=== PATIENT | male | born 1980 | race Caucasian/White ===

== ENCOUNTER 2021-08-05 20:24 | Observation (INO) | payer MEDICAID, SELFPAY ==
[2021-08-05 20:24] VITALS: BP 152/117; PULSE 108; RESP 18; TEMP 36.6; O2SAT 99; BMI 24.4
[2021-08-05 20:55] VITALS: BP 152/117; PULSE 108; RESP 18; TEMP 36.6; O2SAT 99
--- NOTE | 2021-08-05 21:13 | ED.VIS.LOWEX ---
HPI History of Present Illness Chief Complaint: Laceration Informant: patient and spouse/S.O. Occured/Mechanism Mechanism/Context: Yes injury Onset/Context/Timing Onset: Days Context: Gradual Onset Timing: Continuous Current Severity: Mild Maximum Severity: Moderate Narrative Narrative: 40-year-old male no segment past medical or surgical history. States on August 02 he had a laceration of his left foot while walking in a [place] he cut it on glass. He does not believe there is any foreign body. He was seen and treated at [facility]. He was suture repaired. He states in the last day or so he is developed increasing swelling and pain in the left foot. Today was seen again at [facility] where they put him on oral antibiotics. And he states the swelling is getting worse. He denies any fever or chills. He is not diabetic. Prior similar symptoms: No Recent Illness/Hospitalization: No PFSH PFSH Medical History Benign prostatic disease Normal cystoscopy Home Medications sulfamethoxazole-trimethoprim [Bactrim DS] 1 tab PO BID 08/05/21 [History Last Taken Unknown] Allergy/AdvReac Type Severity Reaction Status Date / Time No Known Allergies Allergy Verified 08/05/21 20:54 Surgical History H/O vasectomy Social History Smoking Status: Current every day smoker tobacco type: cigarettes ROS ROS ED ROS Narrative Denies. Review of Systems ROS Unobtainable: Denies due to encephalopathy Constitutional Constitutional ED: Denies chills, fever(s) or subjective Eyes Eyes: Denies change in vision ENT ENT ED: Denies ear pain, rhinorrhea or sore throat Cardiovascular Cardiovascular: Denies chest pain Respiratory/Chest Respiratory/Chest: Denies cough or dyspnea Gastrointestinal Gastrointestinal: Denies abdominal pain or nausea Genitourinary Genitourinary ED: Denies dysuria Musculoskeletal Musculoskeletal: Denies myalgias Integumentary Denies rash Neurologic Neurologic: Denies headache(s) Psychiatric Psychiatric: Denies depression Endocrine Endocrinology: Denies polyuria Hematologic/Lymphatic Hematologic/Lymphatic: Denies easy bruising Allergic/Immunologic Allergic/Immunologic ED: Denies urticaria EXAM Physical Exam Narrative Exam Narrative: 32-year-old male no acute distress vital signs stable afebrile blood pressure elevated 132/117. HEENT exam unremarkable. Lungs are clear. Heart regular rhythm no murmur rate about 105. Abdomen soft nontender. Moving all 4 extremities. Neurovascularly intact. His right foot has a laceration repair sutures in place. However it swollen tender and cellulitic. Involves the foot and the very distal right lower leg above the ankle. There is no lymphangitic streaking. There is no inguinal lymphadenopathy. He is able to wiggle his toes. He has a palpable DP pulse. He has normal touch sensation. Const Vital Signs: 08/05/21 20:24 08/05/21 20:55 08/05/21 21:33 Temperature 98 F 98 F 98 F Temperature Source Temporal Temporal Temporal Pulse Rate 108 H 108 H 108 H Respiratory Rate 18 18 18 Blood Pressure 152/117 H 152/117 H 152/117 H Blood Pressure Mean 128 128 128 Pulse Ox 99 99 99 Oxygen Delivery Method Room Air Room Air Room Air Positive well nourished and well developed; Negative for obese, cachectic, contractures or unkempt General Appearance ED: well developed and NAD; Negative for unkempt, cachectic or contractures Nutritional Appearance: Negative for cachectic or obese HEENT Reports moist mucous membranes normocephalic and atraumatic Eyes PERRL Neck full ROM and supple Thyroid: Negative for tender Chest Wall inspection of chest normal and palpation of chest normal Resp normal respiratory effort, no retractions and clear to auscultation bilaterally Auscultation: Negative for rales, rhonchi or wheezes Cardio regular rate, regular rhythm, S1 normal heart sound, S2 normal heart sound and no murmurs GI non-tender, non-distended and no masses Auscultation: normoactive bowel sounds Palpation: soft; Negative for tender or guarding Back/Spine no CVA tenderness Extremity normal to inspection Extremity Narrative: Right foot red, swollen and tender with a suture close laceration in the midportion of his instep. Obviously infected. General Extremety ED: Yes edema; Negative for cyanosis General Extremity: edema; Negative for cyanosis Neuro oriented x3 and moves all extremities Sensorium / Orientation: alert, oriented to person, oriented to place and oriented to time; Negative for confused, lethargic or stuporous Psych mental status grossly normal Appearance: Negative for unkempt Skin Skin Narrative: Right foot laceration repair with cellulitis and swelling. Lesions: no lesions MDM MDM MDM Narrative Medical decision making narrative: Patient has a laceration of his right foot that is been repaired at another facility is obviously infected will need to be admitted for IV antibiotics. Reportedly had prior x-rays that were negative for foreign body. I will obtain another set of x-rays screening labs and will be started on IV Unasyn. His tetanus is up-to-date within the last 2 to 3 years. Lab Data Attestation: I reviewed the patient's lab results. Lab results narrative: CBC shows a white count of 15.4. Hemoglobin 15. Electrolytes normal gap of 6. Normal creatinine of 1. Glucose 82. Labs: Laboratory Results - last 24 hr 08/05/21 08/05/21 21:30 21:30 WBC 15.4 H RBC 4.96 Hgb 15.6 Hct 46.0 MCV 92.7 MCH 31.5 MCHC 33.9 RDW Std Deviation 44.8 H RDW Coeff of Sandrine 13.2 Plt Count 225 MPV 10.0 Immature Gran % (Auto) 0.400 Neut % (Auto) 75.8 H Lymph % (Auto) 12.2 L Mccone % (Auto) 9.9 Eos % (Auto) 1.1 Baso % (Auto) 0.6 Absolute Neuts (auto) 11.6 H Absolute Lymphs (auto) 1.88 Nucleated RBC % 0 Sodium 140 Potassium 3.8 Chloride 106 Carbon Dioxide 28.0 Anion Gap 6 BUN 11 Creatinine 1.02 Estim Creat Clear Calc 107.78 Est GFR (MDRD) Af Amer 105 Est GFR (MDRD) Non-Af 87 BUN/Creatinine Ratio 10.8 Glucose 82 Calcium 9.5 Radiography Diagnostic Testing: Right foot x-ray 3 views interpreted by myself. Showss soft tissue swelling but no foreign body seen. No fracture noted. No gas. Interpreted by myself. Discharge Plan Dx/Rx/DC Orders Clinical Impression: Infection of right foot Disposition Disposition: Acute Care Hospital [facility]
[2021-08-05 21:33] VITALS: BP 152/117; PULSE 108; RESP 18; TEMP 36.6; O2SAT 99
--- NOTE | 2021-08-05 21:33 | RAD_ITS ---
STUDY: X-RAY - LEFT FOOT CLINICAL: Male, 40 years old. infected ??FB TECHNIQUE: 3 view(s) of the foot. COMPARISON: None. FINDINGS: Normal talus, calcaneus, and tarsal bones. Normal visualized subtalar, talonavicular, calcaneocuboid, tarsal and tarsometatarsal articulations. Normal metatarsi. Normal metatarsophalangeal joint of the great toe. Normal tibial and fibular sesamoid bones. Normal interphalangeal joint of the great toe. Normal phalanges of the great toe. Normal second through fifth metatarsophalangeal joints. Normal interphalangeal joints and phalanges of the lesser toes. The soft tissue structures are unremarkable. There is no demonstrated fracture. No visualized radiopaque foreign body. RAD/Foot min 3 Views IMPRESSION: Normal x-ray examination of the foot. Electronically Signed: Brown Barrios MD at 22:17 EDT , Service support ,
[2021-08-05 21:44] LABS: Absolute Lymphocyte Count 1.88 X10^3/uL (0.83-4.51); Absolute Neutrophil Count 11.6 X10^3/uL (2.0-7.7); Basophil# 0.09 X10^3/uL; Basophil% 0.6 % (0-1); Eosinophil# 0.17 X10^3/uL; Eosinophils% 1.1 % (0-5); Hemoglobin 15.6 g/dL (13.0-16.5); Lymphocyte # 1.88 X10^3/ul (0.83-4.51); Lymphocyte % 12.2 % (19-41); Mean Corp Hgb Conc 33.9 g/dL (32-36); Mean Corpuscular Hgb 31.5 pg (27.0-32.0); Mean Corpuscular Volume 92.7 fL (80-94); Monocyte# 1.52 X10^3/uL; Monocyte% 9.9 % (0-10); NRBC Flagged by Analyzer 0 % (0-5); Neutrophil # 11.63 X10^3/uL (2.7-7.7); Neutrophil % 75.8 % (47-70); POSITIVE DIFFERENTIAL YES; Platelet Count 225 K/mm3 (150-450); RBC Distribution Width CV 13.2 % (11.6-14.6); RBC Distribution Width SD 44.8 fl (35.1-43.9); Red Blood Count 4.96 M/mm3 (4.6-6.2); White Blood Count 15.4 K/mm3 (4.4-11.0)
[2021-08-05 21:59] LABS: Anion Gap 6 (5-15); BUN 11 mg/dL (7-18); BUN/Creat Ratio 10.8 RATIO (10-20); Calcium,Total 9.5 mg/dL (8.5-10.1); Chloride 106 mmol/L (98-107); Creatinine, Serum 1.02 mg/dL (0.70-1.30); EST Glomerular Filtration Rate 87 mL/min (>60); Est Glom Filt Rate - Afr Amer 105 mL/min (>60); Estimated Creatinine Clearance 107.78 ml/min; Glucose 82 mg/dL (74-106); Potassium 3.8 mmol/L (3.5-5.1); Sodium Level 140 mmol/L (136-145)
[2021-08-05 22:05] LABS: Differential Indicated SCAN CRITERIA MET
[2021-08-05 22:19] VITALS: BP 145/95; PULSE 89; RESP 16; TEMP 36.4; O2SAT 99
[2021-08-05 22:30] VITALS: RESP 16
[2021-08-05 22:31] LABS: Differential Comment SCANNED
--- NOTE | 2021-08-05 22:31 | PCS.PANDOC ---
PANDEMIC DOCUMENTATION INITIATED: Date: 06/13/2021 Time: 190
--- NOTE | 2021-08-05 22:40 | CT_ITS ---
STUDY: CT RIGHT FOOT WITH CONTRAST REASON FOR EXAM: Male, 40 years old. Other, STEPPED ON GLASS SUNDAY,LACERATION WITH STITCHES RT MID MEDIAL FOOT,PAIN,REDNESS AND SWELLING RADIATION DOSAGE (If Supplied By Facility): CTDIvol = ( 15.35 ) mGy, DLP = ( 537.98 ) mGycm TECHNIQUE: Thin section transaxial imaging of the foot was obtained, with sagittal and coronal reconstructed images. Post contrast imaging was performed. Individualized dose optimization techniques were used for this CT. COMPARISON: Right foot x-ray dated August 05, 2021 FINDINGS: Mild to moderate subcutaneous edema is present around the ankle and throughout the foot. The muscles are normal. No visualized subcutaneous abscess subcutaneous gas. No radiopaque foreign body is seen. No demonstrated cortical erosion or bony destruction or periosteal reaction to suggest osteomyelitis. No focal or suspicious enhancement is present. Normal talus, calcaneus, and tarsal bones. Normal visualized tibiotalar, subtalar, talonavicular, calcaneocuboid, tarsal and tarsometatarsal articulations. Normal metatarsi. Normal metatarsophalangeal joint of the great toe. Normal tibial and fibular sesamoid bones. Normal interphalangeal joint of the great toe. Normal phalanges of the great toe. Normal second through fifth metatarsophalangeal joints. Normal interphalangeal joints and phalanges of the lesser toes. The Achilles tendon is intact. No occult fracture is present. IMPRESSION: Findings are consistent with cellulitis 1. Mild to moderate subcutaneous edema is present around the ankle and throughout the foot. The muscles are normal. 2. No visualized subcutaneous abscess subcutaneous gas. 3. No radiopaque foreign body is seen. 4. No demonstrated cortical erosion or bony destruction or periosteal reaction to suggest osteomyelitis. 5. No focal or suspicious enhancement is present. 6. No fracture is seen. Electronically Signed: Brown Barrios MD at 0:07 EDT , Service support , CT/Extremity Lower WITH Contrast
--- NOTE | 2021-08-05 22:41 | HP.PCM.HOS_ITS ---
HPI - General General Date of Admission: 08/05/21 HPI Narrative JAMMIE ALEMAN, is a 40 M who presented to [facility] on 08/05/2021 with a chief complaint of right foot infection. On Sunday of this week the patient was waiting in a [place] and stepped on a piece of wood that had glass embedded in it. At that time he went to [facility] where he states the wound was aggressively irrigated and then sutured but he was not placed on antibiotics at that time. He states since that time he has had progressive worsening of swelling and erythema that developed within the last 24 to 36 hours. He states that it significantly got worse today and he went to the emergency department back at [facility] today and was started on oral Bactrim. He had 1 dose in the emergency department there prior to discharge. He then came to the emergency department here as his pain got worse and the erythema spread significantly. He reports that he had some low-grade temperatures that were slightly below 101 yesterday but none today. His only other complaints are significant right lower extremity pain and erythema. He has no tingling and numbness in the toes and states otherwise he is feeling well. On exam the foot is very tender with worsening erythema. There is no drainage from the laceration that is currently sutured shut. There is increased tissue temperature and mild streaking up the medial aspect of his right calf. I outlined the erythematous area. His vital signs were overall stable. He had some mild tachycardia on presentation that has since resolved. He is afebrile and his vital signs are otherwise stable. His CBC shows a leukocytosis with a white count of 15.4 and a left shift but is otherwise unremarkable. His BMP is all within normal limits. A foot x-ray was obtained that shows no abnormalities. I have requested a foot CT that is currently pending. He has no chronic medical conditions. He does smoke cigarettes of approximately 1 pack every 3 days. He was treated with IV Unasyn in the emergency department and we were requested to evaluate for admission. [facility] Medical History Benign prostatic disease Normal cystoscopy Home Medications sulfamethoxazole-trimethoprim [Bactrim DS] 1 tab PO BID 08/05/21 [History Last Taken Unknown] Allergy/AdvReac Type Severity Reaction Status Date / Time No Known Allergies Allergy Verified 08/05/21 20:54 Family History (Updated 08/05/21 @ 22:[address] Annamaria Thompson DO) Other COPD (chronic obstructive pulmonary disease) Surgical History H/O vasectomy Social History (Updated 08/05/21 @ 23:[address] Annamaria Thompson DO) Smoking Status: Current every day smoker tobacco type: cigarettes alcohol intake: current alcohol intake frequency: a few times a week substance use type: does not use ROS Constitutional Constitutional: Reports chills and fever(s); Denies anorexia, change in weight, fatigue, malaise, night sweats, weakness or other Eyes Eyes: Denies blurry vision, change in eye color, change in vision, discharge from eye(s), double vision, erythema, eye pain, loss of vision or other ENT HEENT: Denies abnormal hearing, dysphagia, ear pain, epistaxis, headache(s), hearing loss, nasal congestion, nasal discharge, post nasal drip, sinus pressure, sore throat or other Cardiovascular Cardiovascular: Denies chest pain, claudication, dyspnea on exertion, edema, lightheadedness, orthopnea, palpitations, paroxysmal nocturnal dyspnea, rapid heart rate, syncope or other Respiratory/Chest Respiratory/Chest: Denies cough, dyspnea, excessive phlegm production, hemoptysis, productive cough, shortness of breath at rest, shortness of breath with exertion, wheezing or other Gastrointestinal Gastrointestinal: Denies abdominal pain, coffee ground emesis, constipation, diarrhea, dyspepsia, hematemesis, hematochezia, loose stools, melena, nausea, vomiting or other Genitourinary Genitourinary: Denies burning urination, difficulty urinating, dysuria, hematuria, nocturia, urinary frequency, urinary hesitancy, urinary incontinence, urinary urgency or other Musculoskeletal Musculoskeletal: Reports other Details: Foot pain, swelling, erythema Neurologic Neurologic: Reports abnormal gait; Denies abnormal speech, confusion, disequilibrium, dizziness, focal weakness, headache(s), numbness, paresthesias, seizure-like activity, seizures, syncope, tingling, tremor(s) or other Psychiatric Psychiatric: Denies anxiety, depression, homicidal ideation, suicidal ideation or other Endocrine Endocrinology: Denies change in body appearance, cold intolerance, excessive swe ating, heat intolerance, polydipsia, polyuria or other Hematologic/Lymphatic Hematologic/Lymphatic: Denies anemia, easy bleeding, easy bruising, lymphadenopathy or other Allergic/Immunologic Allergic/Immunologic: Denies rhinitis, hives, eczemia, asthma or other Vital Signs Vital Signs Vital Signs: 08/05/21 20:24 08/05/21 20:55 08/05/21 21:33 Temperature 98 F 98 F 98 F Temperature Source Temporal Temporal Temporal Pulse Rate 108 H 108 H 108 H Respiratory Rate 18 18 18 Blood Pressure 152/117 H 152/117 H 152/117 H Blood Pressure Mean 128 128 128 Pulse Ox 99 99 99 Oxygen Delivery Method Room Air Room Air Room Air 08/05/21 22:19 08/05/21 22:30 Temperature 97.5 F L Temperature Source Temporal Pulse Rate 89 Respiratory Rate 16 16 Blood Pressure 145/95 H Blood Pressure Mean 111 Pulse Ox 99 Oxygen Delivery Method Weight Weight: 81.647 kg Body Mass Index (BMI) 24.4 Physical Exam Const alert, oriented x3, no apparent distress and average body habitus Constitutional Narrative: Middle-aged white male lying in bed, appears comfortable, nontoxic, very pleasant General Appearance: cooperative HEENT normocephalic, head/scalp atraumatic, hearing grossly normal bilaterally and moist oral mucous membranes HEENT Narrative: Mallampati 2, no thrush, few teeth missing with fair dentition Eyes PERRL, EOMs intact bilaterally and conjunctivae normal Eyes Narrative: No scleral icterus Neck no lymphadenopathy, supple and no JVD Neck Narrative: Trachea midline, no thyroid enlargement Resp normal respiratory effort, no retractions, no use of accessory muscles and clear to auscultation bilaterally Auscultation: Negative for crackles, rales, rhonchi or wheezes Cardio regular rate, regular rhythm, S1 normal heart sound, S2 normal heart sound, no murmurs, no rub, no gallops, no clicks and no JVD GI normal to inspection, nondistended, normoactive bowel sounds, soft to palpation, non-tender and non-distended; Negative for hepatosplenomegaly Extremity Extremity Narrative: No clubbing or cyanosis, right lower extremity edema with erythema and tracking up the medial right calf Peripheral Pulses: Yes pulses 2+ throughout Skin skin turgor normal, no jaundice, no petechiae and no mottling Skin Narrative: Sutured laceration medial instep right foot without any drainage, marked erythema and tenderness Neuro oriented x3, CN's II-XII intact bilaterally, moves all extremities and no focal motor deficits Neuro Narrative: Sensations normal Sensorium / Orientation: awake and alert Speech: speech normal Psych affect normal Results Lab / Micro Data Attestation: I reviewed the patient's lab results. Result Diagrams: 08/05/21 21:30 08/05/21 21:30 Labs: Laboratory Results - last 24 hr 08/05/21 21:30: WBC 15.4 H, RBC 4.96, Hgb 15.6, Hct 46.0, MCV 92.7, MCH 31.5, MCHC 33.9, RDW Std Deviation 44.8 H, RDW Coeff of Sandrine 13.2, Plt Count 225, MPV 10.0, Immature Gran % (Auto) 0.400, Neut % (Auto) 75.8 H, Lymph % (Auto) 12.2 L, [place] % (Auto) 9.9, Eos % (Auto) 1.1, Baso % (Auto) 0.6, Absolute Neuts (auto) 11.6 H, Absolute Lymphs (auto) 1.88, Nucleated RBC % 0, Differential Comment SCANNED, Diff Path Review February08/05/21 21:30: Sodium 140, Potassium 3.8, Chloride 106, Carbon Dioxide 28.0, Anion Gap 6, BUN 11, Creatinine 1.02, Estim Creat Clear Calc 107.78, Est GFR (MDRD) Af Amer 105, Est GFR (MDRD) Non-Af 87, BUN/Creatinine Ratio 10.8, Glucose 82, Calcium 9.5 Radiology Impression Foot X-Ray 08/05/21 21:33 IMPRESSION: Normal x-ray examination of the foot. Electronically Signed: Brown Barrios MD at 22:17 EDT , Service support , Assessment & Plan Assessment/Plan (1) Leukocytosis: (2) Tobacco abuse: (3) Infection of right foot: PLAN: Right infection status post primary closure of laceration -Injury occurred on 08/02/2021 -Patient reports significant irrigation but was not placed on antibiotics -[facility] and was placed on Bactrim -Took 1 dose today -Came to ED with worsening pain and swelling -Foot with marked erythema, tenderness, and medial calf streaking at this time -Given this was an injury in fresh water will start Levaquin to cover Pseudomonas and will initiate vancomycin at this time although doubt staph aureus -Check MRSA PCR -Culture wound if any signs of drainage -CT foot pending -Consult podiatry--> Dr. Mendoza Leukocytosis -See above -We will monitor Tobacco abuse -Nicotine patch ordered DVT prophylaxis -Lovenox -SCDs CODE STATUS -Full code Charges/Coding Visit Charges Inpatient E&M: 48293 Init Hosp L2
[2021-08-05 23:16] VITALS: BMI 23.1
[2021-08-05 23:27] VITALS: BP 168/89; PULSE 90; RESP 16; TEMP 36.9; O2SAT 100
--- NOTE | 2021-08-05 23:50 | PCS.PANDOC ---
PANDEMIC DOCUMENTATION INITIATED: Date: 08/05/2021 Time: 1943
[2021-08-06] MEDS: levoFLOXacin IV 750 MG/150 ML BAG 100 MG IV ×2 (00:06→21:11)
[2021-08-06] MEDS: metroNIDAZOLE 500 MG/100 ML BAG 100 MG IV ×4 (00:09→21:11)
--- NOTE | 2021-08-06 01:17 | PCM.RX.CS ---
Consult Pharmacy has been consulted to manage selected antiobiotic: Vancomycin Type of Consult: New start Suspected Infection: Skin/Soft tissue Labs: Sodium 140 mmol/L (136-145) 08/05/21 21:30 Potassium 3.8 mmol/L (3.5-5.1) 08/05/21 21:30 Chloride 106 mmol/L (98-107) 08/05/21 21:30 Carbon Dioxide 28.0 mmol/L (21.0-32.0) 08/05/21 21:30 Anion Gap 6 (5-15) 08/05/21 21:30 BUN 11 mg/dL (7-18) 08/05/21 21:30 Creatinine 1.02 mg/dL (0.70-1.30) 08/05/21 21:30 Est GFR (MDRD) Af Amer 105 mL/min (>60) 08/05/21 21:30 Est GFR (MDRD) Non-Af 87 mL/min (>60) 08/05/21 21:30 BUN/Creatinine Ratio 10.8 RATIO (10-20) 08/05/21 21:30 Glucose 82 mg/dL (74-106) 08/05/21 21:30 Goal Trough: 15-20 mcg/mL Pharmacy Plan for Drug Dosing: Pharmacy Service will continue to monitor and adjust dosing as required. Medications Vancomycin HCl (Vancomycin) 1,000 mg in 200 mls @ 200 mls/hr IV Q8H LIOR Discontinued Medications Vancomycin HCl 1,250 mg/ (Sodium Chloride) 275 mls @ 167 mls/hr IV X1 ONE Stop: 08/06/21 01:08 Last Admin: 08/06/21 00:48 Dose: 167 mls/hr Documented by: Follow-Up Labs: Trough Vancomycin Labs to be done on [date and time ordered]: 08/07 @ 0030
[2021-08-06 01:57] LABS: M R Staph aureus DNA By PCR Negative (Negative); Probe Check PASS; Specimen Processing Control PASS
[2021-08-06 01:57] LABS: M R Staph aureus DNA By PCR Negative (Negative); Probe Check PASS; Specimen Processing Control PASS; Staph aureus DNA By PCR NEGATIVE (Negative)
[2021-08-06 05:09] VITALS: BP 131/80; PULSE 82; RESP 18; TEMP 36.4; O2SAT 98
--- NOTE | 2021-08-06 07:52 | PCM.CONS.GEN ---
Assessment & Plan Assessment/Plan (1) Infection of right foot: (2) Foreign body in right foot: PLAN: I reviewed and discussed his case. His leukocytosis and tachycardia are noted. He remains afebrile. His labs this morning are pending. It is noted he had a recent foreign body that was removed. His tetanus is up-to-date. He is responding well so far to IV Unasyn. I recommend continued IV antibiotics. He understands operating room irrigation and debridement may be needed if he does not continue to respond well. His sutures were removed and copious saline irrigation was performed this morning. Deep wound cultures were obtained including aerobic, anaerobic, and MRSA PCR. Kerlix, and German wrap were applied. To elevate this limb. His imaging studies were updated in which he had a normal foot x-ray without any visualized retained foreign body, soft tissue emphysema, fracture, dislocation, or osseous destruction. CT scan also confirmed these findings. To maintain a nonweightbearing status to the right foot. He has a walker. To DC smoking to optimize healing. Hospitalist management is noted and appreciated. To take pain medication only if needed; he defers. I will follow him close while in house. Please do not hesitate to call if you have any questions. Malina Marshall DPM, [facility] [phone] HPI Consult Data Date of Consult: 08/06/21 HPI Narrative Reason for Consultation: Right foot infection HPI Narrative: JAMMIE ALEMAN, is a 40 M who presents for worsening right foot infection. He was clearing out glass from a river this past Sunday at work when he stepped on a large piece of glass that he did not see. He is wearing sandals and denies that the glass went through the shoe. He believes it was pulled out in full. He initially presented to [facility] emergency room in which this was irrigated and sutured closed. He was not placed on antibiotics. Over the past 48 hours his pain became much worse and was rated as a 10 out of 10. It also became very swollen with redness extending to the mid leg level. He was then placed on oral Bactrim which did not provide adequate improvement. He denies odor or known drainage. Since he is been receiving IV antibiotics overnight his redness has decreased and he rates his pain as a 5 out of 10. He denies toe or foot weakness however he is not able to bear weight without pain. He routinely walks a lot at work. His tetanus has been updated 2 years ago. He smokes 1 pack of cigarettes every 3 days. [facility] Medical History Benign prostatic disease Normal cystoscopy Home Medications sulfamethoxazole-trimethoprim [Bactrim DS] 1 tab PO BID 08/05/21 [History Last Taken Unknown] Allergy/AdvReac Type Severity Reaction Status Date / Time No Known Allergies Allergy Verified 08/05/21 20:54 Family History (Updated 08/05/21 @ 22:[address] Annamaria Thompson DO) Other COPD (chronic obstructive pulmonary disease) Surgical History H/O vasectomy Social History (Updated 08/05/21 @ 23:[address] Annamaria Thompson DO) Smoking Status: Current every day smoker tobacco type: cigarettes alcohol intake: current alcohol intake frequency: a few times a week substance use type: does not use ROS Constitutional Constitutional: Denies chills or fever(s) Cardiovascular Cardiovascular: Denies claudication or cold extremities Gastrointestinal Gastrointestinal: Denies nausea or vomiting Musculoskeletal Musculoskeletal: Denies joint stiffness, numbness or stiffness Integumentary Integumentary: Reports erythema and wounds Neurologic Neurologic: Denies sensory deficit Physical Exam Const alert and oriented x3 General Appearance: cooperative HEENT normocephalic Extremity Extremity Narrative: No calf tenderness No palpable popliteal lymphadenopathy 2 out of 4 PT and DP pulses bilateral No muscle wasting noted Palpation to laceration and injury repair site. There is no weakness noted with resisted ankle and digital motions in all directions. Compartments of the right foot and leg remain soft to palpate General Extremity: edema; Negative for cyanosis Skin Skin Narrative: no purulence, no odor. Laceration repair site with nylon sutures in place. There is intense erythema extending several centimeters from this direct site with reduced intensity per patient. There is also a previously marked streaking area that went to the leg level in which there is no longer any erythema above the ankle level this morning. Upon suture removal there is no purulence odor or foreign material expressed from the wound. After saline irrigation was performed a deep wound culture was obtained. General Skin Exam: Negative for erythema Neuro Neuro Narrative: Epicritic sensation is intact via light touch to the foot and ankle dermatomes equal and symmetrical bilateral Psych cooperative and affect normal Lab / Micro Data Result Diagrams: 08/06/21 07:04 08/06/21 07:04 Labs: Laboratory Results - last 24 hr 08/05/21 21:30: WBC 15.4 H, RBC 4.96, Hgb 15.6, Hct 46.0, MCV 92.7, MCH 31.5, MCHC 33.9, RDW Std Deviation 44.8 H, RDW Coeff of Sandrine 13.2, Plt Count 225, MPV 10.0, Immature Gran % (Auto) 0.400, Neut % (Auto) 75.8 H, Lymph % (Auto) 12.2 L, [place] % (Auto) 9.9, Eos % (Auto) 1.1, Baso % (Auto) 0.6, Absolute Neuts (auto) 11.6 H, Absolute Lymphs (auto) 1.88, Nucleated RBC % 0, Differential Comment SCANNED, Diff Path Review February08/05/21 21:30: Sodium 140, Potassium 3.8, Chloride 106, Carbon Dioxide 28.0, Anion Gap 6, BUN 11, Creatinine 1.02, Estim Creat Clear Calc 107.78, Est GFR (MDRD) Af Amer 105, Est GFR (MDRD) Non-Af 87, BUN/Creatinine Ratio 10.8, Glucose 82, Calcium 9.5 08/05/21 23:30: S.aureus Protein A PCR NEGATIVE, MRSA (PCR) Negative 08/05/21 23:38: MRSA (PCR) Negative Radiology Impression Foot X-Ray 08/05/21 21:33 IMPRESSION: Normal x-ray examination of the foot. Electronically Signed: Brown Barrios MD at 22:17 EDT , Service support , ADDENDUM: 08/06/[address] 08/05/21 22:40 FINDINGS: Mild to moderate subcutaneous edema is present around the ankle and throughout the foot. The muscles are normal. No visualized subcutaneous abscess subcutaneous gas. No radiopaque foreign body is seen. No demonstrated cortical erosion or bony destruction or periosteal reaction to suggest osteomyelitis. No focal or suspicious enhancement is present. Normal talus, calcaneus, and tarsal bones. Normal visualized tibiotalar, subtalar, talonavicular, calcaneocuboid, tarsal and tarsometatarsal articulations. Normal metatarsi. Normal metatarsophalangeal joint of the great toe. Normal tibial and fibular sesamoid bones. Normal interphalangeal joint of the great toe. Normal phalanges of the great toe. Normal second through fifth metatarsophalangeal joints. Normal interphalangeal joints and phalanges of the lesser toes. The Achilles tendon is intact. No occult fracture is present. IMPRESSION: Findings are consistent with cellulitis 1. Mild to moderate subcutaneous edema is present around the ankle and throughout the foot. The muscles are normal. 2. No visualized subcutaneous abscess subcutaneous gas. 3. No radiopaque foreign body is seen. 4. No demonstrated cortical erosion or bony destruction or periosteal reaction to suggest osteomyelitis. 5. No focal or suspicious enhancement is present. 6. No fracture is seen.
[2021-08-06 07:58] LABS: Absolute Lymphocyte Count 2.09 X10^3/uL (0.83-4.51); Absolute Neutrophil Count 6.8 X10^3/uL (2.0-7.7); Basophil# 0.07 X10^3/uL; Basophil% 0.6 % (0-1); Eosinophil# 0.41 X10^3/uL; Eosinophils% 3.8 % (0-5); Hematocrit 45.7 % (40-54); Hemoglobin 15.4 g/dL (13.0-16.5); Lymphocyte # 2.09 X10^3/ul (0.83-4.51); Lymphocyte % 19.2 % (19-41); Mean Corp Hgb Conc 33.7 g/dL (32-36); Mean Corpuscular Hgb 31.3 pg (27.0-32.0); Mean Corpuscular Volume 92.9 fL (80-94); Mean Platelet Vol. 10.5 fl (6.2-12.0); Monocyte# 1.54 X10^3/uL; Monocyte% 14.2 % (0-10); NRBC Flagged by Analyzer 0 % (0-5); Neutrophil # 6.75 X10^3/uL (2.7-7.7); POSITIVE DIFFERENTIAL YES; Platelet Count 220 K/mm3 (150-450); RBC Distribution Width CV 13.2 % (11.6-14.6); RBC Distribution Width SD 45.1 fl (35.1-43.9); Red Blood Count 4.92 M/mm3 (4.6-6.2); White Blood Count 10.9 K/mm3 (4.4-11.0)
[2021-08-06 08:03] LABS: Differential Indicated SCAN CRITERIA MET
[2021-08-06] MEDS: oxyCODONE 5 MG Tablet PO ×5 (08:06→22:31)
[2021-08-06] MEDS: Acetaminophen 325 MG Tablet 650 MG PO ×4 (08:06→23:10)
[2021-08-06 08:09] VITALS: BP 113/69; PULSE 73; RESP 16; TEMP 36.6; O2SAT 99
[2021-08-06 08:17] LABS: ALB/GLOB Ratio 0.8 RATIO (0.9-2.4); AST(SGOT) 15 U/L (15-37); Alanine Aminotransfer ALT/SGPT 29 U/L (16-61); Albumin, Serum 3.1 g/dL (3.2-5.0); Alkaline Phosphatase 82 U/L (45-117); Anion Gap 7 (5-15); BUN 10 mg/dL (7-18); Calcium,Total 8.6 mg/dL (8.5-10.1); Chloride 104 mmol/L (98-107); Creatinine, Serum 0.91 mg/dL (0.70-1.30); EST Glomerular Filtration Rate 99 mL/min (>60); Est Glom Filt Rate - Afr Amer 120 mL/min (>60); Estimated Creatinine Clearance 120.49 ml/min; Globulin 3.7 g/dL (2.2-4.2); Glucose 94 mg/dL (74-106); Magnesium 2.4 mg/dL (1.6-2.6); Phosphorus 3.5 mg/dL (2.5-4.9); Potassium 3.8 mmol/L (3.5-5.1); Protein, Total 6.8 g/dL (6.4-8.2); Sodium Level 137 mmol/L (136-145)
[2021-08-06 08:54] LABS: Reactive Lymphocyte RARE
[2021-08-06] MEDS: Enoxaparin 40 MG/0.4 ML Syringe SC (09:36)
[2021-08-06] MEDS: Vancomycin IV 1,000 MG/200 ML BAG 200 MG IV ×2 (09:36→17:15)
[2021-08-06 13:38] VITALS: BP 117/80; PULSE 77; RESP 16; TEMP 36.6; O2SAT 98
--- NOTE | 2021-08-06 13:56 | PCM.PN.HOSP ---
Subjective Subjective Foot feels much better. Last Sunday he was in a [place] wearing slides when he cut it on glass. Had it sutured in ED. Later then put on trimethoprim/sulfamethoxazole. Objective Data Objective Data Vital Signs: Vital Signs Temp Pulse Resp BP Pulse Ox 36.6 C 77 16 117/80 98 08/06/21 13:38 08/06/21 13:38 08/06/21 13:38 08/06/21 13:38 08/06/21 13:38 Oxygen Delivery Method Room Air Weight: 77.4 kg Body Mass Index (BMI) 23.1 Intake & Output: Intake and Output for Last 24 Hours 08/04/21 08/05/21 08/06/21 23:59 23:59 23:59 Intake Total 362 / 362 870.75 / 870.75 Balance 362 / 362 870.75 / 870.75 Lab / Micro Data Result Diagrams: 08/06/21 07:04 08/06/21 07:04 Labs: Laboratory Results - last 24 hr 08/05/21 21:30: WBC 15.4 H, RBC 4.96, Hgb 15.6, Hct 46.0, MCV 92.7, MCH 31.5, MCHC 33.9, RDW Std Deviation 44.8 H, RDW Coeff of Sandrine 13.2, Plt Count 225, MPV 10.0, Immature Gran % (Auto) 0.400, Neut % (Auto) 75.8 H, Lymph % (Auto) 12.2 L, [place] % (Auto) 9.9, Eos % (Auto) 1.1, Baso % (Auto) 0.6, Absolute Neuts (auto) 11.6 H, Absolute Lymphs (auto) 1.88, Nucleated RBC % 0, Differential Comment SCANNED, Diff Path Review February08/05/21 21:30: Sodium 140, Potassium 3.8, Chloride 106, Carbon Dioxide 28.0, Anion Gap 6, BUN 11, Creatinine 1.02, Estim Creat Clear Calc 107.78, Est GFR (MDRD) Af Amer 105, Est GFR (MDRD) Non-Af 87, BUN/Creatinine Ratio 10.8, Glucose 82, Calcium 9.5 08/05/21 23:30: S.aureus Protein A PCR NEGATIVE, MRSA (PCR) Negative 08/05/21 23:38: MRSA (PCR) Negative 08/06/21 07:04: WBC 10.9, RBC 4.92, Hgb 15.4, Hct 45.7, MCV 92.9, MCH 31.3, MCHC 33.7, RDW Std Deviation 45.1 H, RDW Coeff of Sandrine 13.2, Plt Count 220, MPV 10.5, Immature Gran % (Auto) 0.200, Neut % (Auto) 62.0, Lymph % (Auto) 19.2, [place] % (Auto) 14.2 H, Eos % (Auto) 3.8, Baso % (Auto) 0.6, Absolute Neuts (auto) 6.8, Absolute Lymphs (auto) 2.09, Nucleated RBC % 0, Reactive Lymphocytes RARE 08/06/21 07:04: Sodium 137, Potassium 3.8, Chloride 104, Carbon Dioxide 26.0, Anion Gap 7, BUN 10, Creatinine 0.91, Estim Creat Clear Calc 120.49, Est GFR (MDRD) Af Amer 120, Est GFR (MDRD) Non-Af 99, BUN/Creatinine Ratio 11.0, Glucose 94, Calcium 8.6, Phosphorus 3.5, Magnesium 2.4, Total Bilirubin 1.00, AST 15, ALT 29, Alkaline Phosphatase 82, Total Protein 6.8, Albumin 3.1 L, Globulin 3.7, Albumin/Globulin Ratio 0.8 L Micro: Microbiology 08/05/21 23:30 Wound - Right Foot Wound Culture - Preliminary No growth-Final to follow Radiography Diagnostic Testing: Radiology Impression Foot X-Ray 08/05/21 21:33 IMPRESSION: Normal x-ray examination of the foot. Electronically Signed: Brown Barrios MD at 22:17 EDT , Service support , ADDENDUM: 08/06/[address] 08/05/21 22:40 Physical Exam Const alert and no apparent distress Extremity Extremity Narrative: right foot wrapped--did not remove. lymphangitis marked off and no erythema noted proximally. Psych affect normal Assessment & Plan Assessment/Plan (1) Infection of right foot: (2) Leukocytosis: QUALIFIERS: Leukocytosis type: other Qualified Code(s): D72.828 - Other elevated white blood cell count (3) Tobacco abuse: PLAN: Right infection status post primary closure of laceration -Injury occurred on 08/02/2021 -Patient reports significant irrigation but was not placed on antibiotics -Returned to ED at [place] a.m. 08/05/2021 and was placed on Bactrim -Took 1 dose 08/05 -Came to ED with worsening pain and swelling -Foot with marked erythema, tenderness, and medial calf streaking at this time -Given this was an injury in fresh water will start Levaquin to cover Pseudomonas and will initiate vancomycin at this time although doubt staph aureus -Check MRSA PCR -Culture wound if any signs of drainage -CT foot pending -08/06: Sutures removed by podiatry with a copious saline irrigation at bedside. Patient to be nonweightbearing. Leukocytosis -See above -We will monitor Tobacco abuse -Nicotine patch ordered DVT prophylaxis -Lovenox -SCDs CODE STATUS -Full code Charges/Coding Visit Charges Inpatient E&M: 23170 Subs Hosp L2
--- NOTE | 2021-08-06 14:00 | CASEMGMT ---
RN [employer] DRIVER CM to room to meet with patient for initial transition planning/care coordination assessment. TRACY HUANG introduced self and role at [facility]. Pt voices understanding and consents to assessment at this time. Pt sitting on edge of bed in no distress at this time. Pt is A/O at this time and answers all questions appropriately. Care providers, pharmacy, and demographics verified/updated at this time. PCP: Dr Chris Johnston Specialists:none Preferred Pharmacy: [facility] retail Insurance: [employer] Prescription Benefit: Yes Living Will/HPOA: Pt does not currently have LW/HCPOA and declines info at this time. LNOK: Sister, Macey. Has 7 siblings total. 2 children: ages 10 and 11. Parents . Living Arrangements: Lives w/sig other, Jane San in 2-story home w/no steps to enter. Bedroom is on 2nd floor, but could sleep on main floor, if needed. Has been able to manage/navigate the stairs while maintaining NWB since injury. Independent prior to injury. Jane supportive and can assist as needed and would be willing to do dressing changes, per pt. Transportation: Pt states drives self and states no transportation concerns at this time. Jane drives and will be able to provide transportation while pt NWB to rt foot. DME: Has a walker. Pt states no need for further DME at this time. HHC/SNF: No hx of either. Denies needs for HHC. Pt wishes to return home and states has no concerns with going home at time of discharge. Pt voices no concerns/needs at this time. PLAN: Home w/sig other support and discharge plans in place. Sig other able to help w/dsg changes, as needed. May need script for dressing supplies. David CAALN TRACY HUANG
[2021-08-06 17:14] VITALS: BP 123/79; PULSE 74; RESP 16; TEMP 36.6; O2SAT 98
[2021-08-06 21:00] VITALS: BP 135/76; PULSE 76; RESP 20; TEMP 36.7; O2SAT 97
[2021-08-07 00:57] LABS: Vancomycin, Trough Level 10.9 ug/mL (5.0-15.0)
--- NOTE | 2021-08-07 01:08 | PCM.RX.CS ---
Consult Pharmacy has been consulted to manage selected antiobiotic: Vancomycin Type of Consult: Follow-up Suspected Infection: Skin/Soft tissue Labs: Sodium 137 mmol/L (136-145) 08/06/21 07:04 Potassium 3.8 mmol/L (3.5-5.1) 08/06/21 07:04 Chloride 104 mmol/L (98-107) 08/06/21 07:04 Carbon Dioxide 26.0 mmol/L (21.0-32.0) 08/06/21 07:04 Anion Gap 7 (5-15) 08/06/21 07:04 BUN 10 mg/dL (7-18) 08/06/21 07:04 Creatinine 0.91 mg/dL (0.70-1.30) 08/06/21 07:04 Est GFR (MDRD) Af Amer 120 mL/min (>60) 08/06/21 07:04 Est GFR (MDRD) Non-Af 99 mL/min (>60) 08/06/21 07:04 BUN/Creatinine Ratio 11.0 RATIO (10-20) 08/06/21 07:04 Glucose 94 mg/dL (74-106) 08/06/21 07:04 Vancomycin Trough 10.9 ug/mL (5.0-15.0) 08/07/21 00:30 Microbiology: Microbiology 08/05/21 23:30 Wound - Right Foot Gram Stain - Final 08/05/21 23:30 Wound - Right Foot Wound Culture - Preliminary No growth-Final to follow Goal Trough: 15-20 mcg/mL Pharmacy Plan for Drug Dosing: Pharmacy Service will continue to monitor and adjust dosing as required. TROUGH 10.2 @ 7.5 HOURS. INCREASE TO 1250MG Q8H AND FOLLOW UP TROUGH PRIOR TO 4TH DOSE Follow-Up Labs: Trough Vancomycin Labs to be done on [date and time ordered]: 08/08 @ 0030
[2021-08-07 03:24] VITALS: BP 130/72; PULSE 77; RESP 18; TEMP 37.1; O2SAT 97
[2021-08-07] MEDS: 0.9% Saline Lock 10 ML Syringe IV (03:40)
[2021-08-07] MEDS: metroNIDAZOLE 500 MG/100 ML BAG 100 MG IV (05:21)
[2021-08-07 06:00] LABS: Absolute Lymphocyte Count 2.18 X10^3/uL (0.83-4.51); Absolute Neutrophil Count 6.3 X10^3/uL (2.0-7.7); Basophil# 0.05 X10^3/uL; Basophil% 0.5 % (0-1); Eosinophil# 0.49 X10^3/uL; Eosinophils% 4.8 % (0-5); Hematocrit 44.9 % (40-54); Hemoglobin 14.9 g/dL (13.0-16.5); Lymphocyte # 2.18 X10^3/ul (0.83-4.51); Lymphocyte % 21.1 % (19-41); Mean Corp Hgb Conc 33.2 g/dL (32-36); Mean Corpuscular Hgb 30.6 pg (27.0-32.0); Mean Corpuscular Volume 92.2 fL (80-94); Mean Platelet Vol. 10.4 fl (6.2-12.0); Monocyte# 1.25 X10^3/uL; Monocyte% 12.1 % (0-10); NRBC Flagged by Analyzer 0 % (0-5); Neutrophil % 61.1 % (47-70); Platelet Count 196 K/mm3 (150-450); RBC Distribution Width CV 12.8 % (11.6-14.6); RBC Distribution Width SD 43.7 fl (35.1-43.9); Red Blood Count 4.87 M/mm3 (4.6-6.2); White Blood Count 10.3 K/mm3 (4.4-11.0)
[2021-08-07 06:28] LABS: Anion Gap 5 (5-15); BUN 9 mg/dL (7-18); BUN/Creat Ratio 10.7 RATIO (10-20); Calcium,Total 8.4 mg/dL (8.5-10.1); Chloride 106 mmol/L (98-107); Creatinine, Serum 0.84 mg/dL (0.70-1.30); EST Glomerular Filtration Rate 108 mL/min (>60); Est Glom Filt Rate - Afr Amer 130 mL/min (>60); Estimated Creatinine Clearance 130.54 ml/min; Glucose 97 mg/dL (74-106); Potassium 3.7 mmol/L (3.5-5.1); Sodium Level 137 mmol/L (136-145)
--- NOTE | 2021-08-07 07:59 | PN.HOSP_ITS ---
Objective Data Objective Data Vital Signs: Vital Signs Temp Pulse Resp BP Pulse Ox 98.8 F 77 18 130/72 H 97 08/07/21 03:24 08/07/21 03:24 08/07/21 03:24 08/07/21 03:24 08/07/21 03:24 Oxygen Delivery Method Room Air Weight: 170 lb 10.205 oz Body Mass Index (BMI) 23.1 Intake & Output: Intake and Output for Last 24 Hours 08/05/21 08/06/21 08/07/21 23:59 23:59 23:59 Intake Total 362 / 362 3318.00 / 3558.00 515 / 515 Balance 362 / 362 3318.00 / 3558.00 515 / 515 Lab / Micro Data Result Diagrams: 08/07/21 05:38 08/07/21 05:38 Labs: Laboratory Results - last 24 hr 08/06/21 07:04: WBC 10.9, RBC 4.92, Hgb 15.4, Hct 45.7, MCV 92.9, MCH 31.3, MCHC 33.7, RDW Std Deviation 45.1 H, RDW Coeff of Sandrine 13.2, Plt Count 220, MPV 10.5, Immature Gran % (Auto) 0.200, Neut % (Auto) 62.0, Lymph % (Auto) 19.2, Sac % (Auto) 14.2 H, Eos % (Auto) 3.8, Baso % (Auto) 0.6, Absolute Neuts (auto) 6.8, Absolute Lymphs (auto) 2.09, Nucleated RBC % 0, Reactive Lymphocytes RARE 08/06/21 07:04: Sodium 137, Potassium 3.8, Chloride 104, Carbon Dioxide 26.0, Anion Gap 7, BUN 10, Creatinine 0.91, Estim Creat Clear Calc 120.49, Est GFR (MDRD) Af Amer 120, Est GFR (MDRD) Non-Af 99, BUN/Creatinine Ratio 11.0, Glucose 94, Calcium 8.6, Phosphorus 3.5, Magnesium 2.4, Total Bilirubin 1.00, AST 15, ALT 29, Alkaline Phosphatase 82, Total Protein 6.8, Albumin 3.1 L, Globulin 3.7, Albumin/Globulin Ratio 0.8 L 08/07/21 00:30: Vancomycin Trough 10.9 08/07/21 05:38: WBC 10.3, RBC 4.87, Hgb 14.9, Hct 44.9, MCV 92.2, MCH 30.6, MCHC 33.2, RDW Std Deviation 43.7, RDW Coeff of Sandrine 12.8, Plt Count 196, MPV 10.4, Immature Gran % (Auto) 0.400, Neut % (Auto) 61.1, Lymph % (Auto) 21.1, Sac % (Auto) 12.1 H, Eos % (Auto) 4.8, Baso % (Auto) 0.5, Absolute Neuts (auto) 6.3, Absolute Lymphs (auto) 2.18, Nucleated RBC % 0 08/07/21 05:38: Sodium 137, Potassium 3.7, Chloride 106, Carbon Dioxide 26.0, Anion Gap 5, BUN 9, Creatinine 0.84, Estim Creat Clear Calc 130.54, Est GFR (MDRD) Af Amer 130, Est GFR (MDRD) Non-Af 108, BUN/Creatinine Ratio 10.7, Glucose 97, Calcium 8.4 L Micro: Microbiology 08/05/21 23:30 Wound - Right Foot Gram Stain - Final 08/05/21 23:30 Wound - Right Foot Wound Culture - Preliminary No growth-Final to follow Assessment & Plan Assessment/Plan (1) Infection of right foot: (2) Leukocytosis: QUALIFIERS: Leukocytosis type: other Qualified Code(s): D72.828 - Other elevated white blood cell count (3) Tobacco abuse: PLAN: Right infection status post primary closure of laceration -Injury occurred on 08/02/2021 -Patient reports significant irrigation but was not placed on antibiotics -Returned to ED at [place] a.m. 08/05/2021 and was placed on Bactrim -Took 1 dose 08/05 -Came to ED with worsening pain and swelling -Foot with marked erythema, tenderness, and medial calf streaking at this time -Given this was an injury in fresh water will start Levaquin to cover Pseudomonas and will initiate vancomycin at this time although doubt staph aureus -Check MRSA PCR -Culture wound if any signs of drainage -CT foot pending -08/06: Sutures removed by podiatry with a copious saline irrigation at bedside. Patient to be nonweightbearing. Leukocytosis -See above -We will monitor Tobacco abuse -Nicotine patch ordered DVT prophylaxis -Lovenox -SCDs CODE STATUS -Full code
[2021-08-07 09:15] VITALS: BP 121/81; PULSE 72; RESP 20; TEMP 36.6; O2SAT 98
--- NOTE | 2021-08-07 09:16 | PN_ITS ---
Subjective Subjective This patient was seen bedside for follow-up of cellulitis related to an infected foreign body incidence. The foreign body has been previously removed. He has demonstrated great improvement with IV antibiotics while in house. His pain continues to decrease. He is not able to place weight on his foot. Objective Data Objective Data Vital Signs: Vital Signs Temp Pulse Resp BP Pulse Ox 98.8 F 77 18 130/72 H 97 08/07/21 03:24 08/07/21 03:24 08/07/21 03:24 08/07/21 03:24 08/07/21 03:24 Oxygen Delivery Method Room Air Weight: 77.4 kg Body Mass Index (BMI) 23.1 Intake & Output: Intake and Output for Last 24 Hours 08/05/21 08/06/21 08/07/21 23:59 23:59 23:59 Intake Total 362 / 362 3318.00 / 3558.00 515 / 515 Balance 362 / 362 3318.00 / 3558.00 515 / 515 Lab / Micro Data Result Diagrams: 08/07/21 05:38 08/07/21 05:38 Labs: Laboratory Results - last 24 hr 08/07/21 00:30: Vancomycin Trough 10.9 08/07/21 05:38: WBC 10.3, RBC 4.87, Hgb 14.9, Hct 44.9, MCV 92.2, MCH 30.6, MCHC 33.2, RDW Std Deviation 43.7, RDW Coeff of Sandrine 12.8, Plt Count 196, MPV 10.4, Immature Gran % (Auto) 0.400, Neut % (Auto) 61.1, Lymph % (Auto) 21.1, [place] % (Auto) 12.1 H, Eos % (Auto) 4.8, Baso % (Auto) 0.5, Absolute Neuts (auto) 6.3, Absolute Lymphs (auto) 2.18, Nucleated RBC % 0 08/07/21 05:38: Sodium 137, Potassium 3.7, Chloride 106, Carbon Dioxide 26.0, Anion Gap 5, BUN 9, Creatinine 0.84, Estim Creat Clear Calc 130.54, Est GFR (MDRD) Af Amer 130, Est GFR (MDRD) Non-Af 108, BUN/Creatinine Ratio 10.7, Glucose 97, Calcium 8.4 L Micro: Microbiology 08/05/21 23:30 Wound - Right Foot Gram Stain - Final 08/05/21 23:30 Wound - Right Foot Wound Culture - Preliminary No growth-Final to follow Physical Exam Const alert and oriented x3 General Appearance: cooperative HEENT normocephalic Extremity Extremity Narrative: No calf tenderness No palpable popliteal lymphadenopathy 2 out of 4 PT and DP pulses bilateral No muscle wasting noted Palpation to laceration and injury repair site. There is no weakness noted with resisted ankle and digital motions in all directions. Compartments of the right foot and leg remain soft to palpate General Extremity: edema; Negative for cyanosis Skin Skin Narrative: no purulence, no odor. Foreign body removal site now has sutures removed with complete resolution of erythema. There is no streaking or purulence on expression. There is scant serosanguineous drainage on the inner layer of the dressing. No necrosis or maceration. General Skin Exam: Negative for erythema Neuro Neuro Narrative: Epicritic sensation is intact via light touch to the foot and ankle dermatomes equal and symmetrical bilateral Psych cooperative and affect normal Assessment & Plan Assessment/Plan (1) Infection of right foot: (2) Foreign body in right foot: PLAN: I reviewed and discussed his case. His leukocytosis has resolved and his last white blood cell count was 10.3. He remains afebrile. He is responded well to IV antibiotics. He is currently taking metronidazole, vancomycin, and Levaquin. He did not respond well to oral Bactrim prior to his admission. Deep wound cultures were obtained including aerobic, anaerobic, and MRSA PCR. Results are pending. MRSA PCR was negative. It is noted he did have a foreign body injury with a potential water source because he was cleaning up glass in a river. His foot was reexamined today and a dressing was reapplied including Betadine gauze, Kerlix, and German wrap were applied. To elevate this limb. To maintain a nonweightbearing status to the right foot. He has a walker. Surgical shoe is also order for additional protection. To DC smoking to optimize healing. Hospitalist management is noted and appreciated. To take pain medication only if needed; he defers. It is okay to discharge from podiatry standpoint. I will discuss with hospitalist to see if this would be appropriate for today or tomorrow. He can follow-up with the [facility] Center within 1 week. I will follow him close while in house. Please do not hesitate to call if you have any questions. Malina Marshall DPM, [facility] [phone]
[2021-08-07] MEDS: Enoxaparin 40 MG/0.4 ML Syringe SC (09:37)
[2021-08-07] MEDS: Acetaminophen 325 MG Tablet 650 MG PO (09:46)
[2021-08-07] MEDS: oxyCODONE 5 MG Tablet PO (09:46)
[2021-08-07 09:52] VITALS: PULSE 72; O2SAT 98
--- NOTE | 2021-08-07 09:57 | PCM.DC ---
Discharge Instructions Diet Discharge Diet: No restrictions Activity Discharge Activity: May Not Drive and - (right foot non weight bearing) Weight Bearing Status: No weight bearing Lifting Restrictions: On right foot Dressing / Incision Call your doctor if you observe: Fever of 101 or Higher, Coldness, Increased Pain, Numbness or Tingling, Change in Color, Inability to urinate, Inability to have a bowel movement, Shortness of breath, Dizziness, Fainting spells, Swelling in the ankles, Chest pain, Prolonged hiccupping, Increased palpitations (irregular heartbeat), Calf discomfort and Uncontrolled pain Follow Up Care Test Results: Test results from this visit will be discussed in further detail at your follow-up appointment, if applicable. Discharge Plan Admission Admit Date/Time: 08/05/21 22:36 Primary Reason for Your Visit: infected right foot foreign body Attending Provider: Jabari Arellano Consulting Providers: Malina Marshall Instructions Additional Instructions / Restrictions: -Maintain a nonweightbearing status to your right foot. Use surgical shoe for additional protection. Use crutches for assistance. It is okay to place weight on your heel if needed for balance. -Change her dressing daily with Betadine gauze. Cover further with Kerlix and the German wrap. -Elevate your right lower limb at rest. -Wash your foot with antibacterial soap and water with each dressing change and avoid soaking activities. -Keep your foot covered with the recommended dressing at all times and do not leave it open to the air. Discharge Orders/Prescriptions Prescriptions: New cephalexin 500 mg capsule 500 mg PO Q8H 7 Days Qty: 21 RF: 0 Lactobacillus acidophilus 1 billion cell tablet 1,000 mmu cells PO DAILY Qty: 7 RF: 0 Continued sulfamethoxazole-trimethoprim [Bactrim DS] 800-160 mg Tablet 1 tab PO BID Qty: 14 RF: 0 Referrals / Follow Up: VICKIE TINSLEY [Other] VICKIE TINSLEY [Other] - In 1 Week Malina Marshall DPM [STAFF PHYSICIAN] - In 1 Week (Call the [facility] to schedule the appointment or call sooner if you have any questions or concerns. ) Disposition Disposition (needs filled in before D/C Order can be placed): Home, Self Care
--- NOTE | 2021-08-07 11:12 | DS.PCM_ITS ---
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 Routine Comment: Consult: Podiatry Routine Consulting Provider: Malina Marshall Reason for Consult: R foot infection EMERGENT Consult: No MD Notified: Yes Date Notified: 08/06/21 Time Notified: 06:55 Method of Notification: Page Comments:: talked on phone verbally Reason For Visit: FOOT INFECTION Diagnosis Discharge Diagnosis (1) Infection of right foot: Status: Acute Code(s): L08.9 - Local infection of the skin and subcutaneous tissue, unspecified (2) Leukocytosis: Status: Acute Code(s): D72.829 - Elevated white blood cell count, unspecified Qualifiers: Leukocytosis type: other Qualified Code(s): D72.828 - Other elevated white blood cell count (3) Tobacco abuse: Status: Acute Code(s): Z72.0 - Tobacco use Medications at Discharge Home Medications Lactobacillus acidophilus 1,000 mmu cells PO DAILY #7 tab 08/07/21 cephalexin 500 mg PO Q8H 7 Days #21 cap 08/07/21 sulfamethoxazole-trimethoprim [Bactrim DS] 1 tab PO BID #14 tab 08/07/21 Hospital Course Summary of Care Provided Hospital Course: This patient was admitted after he had foot injury on 08/02/2021 after stepping on a glass in the Hand. It was repaired with suture was put on Bactrim in outside ER but patient had 1 dose of IV in [place] [facility] and discharged on Bactrim but patient came here and was admitted. 1. Right foot laceration with surrounding contiguous cellulitis extending up to right lower leg: Patient was [facility]. Seen by crank hand. Patient was started on broad-spectrum antibiotic vancomycin, Levaquin and Flagyl. Cellulitis improved. MRSA PCR negative. Wound culture shows no organisms. Dressing was done by crank hand today. Advised nonweightbearing right foot. Patient has of oxygen patient has prescription of Bactrim but unclear how many days therefore 7 days of Bactrim and Keflex was given. Patient was instructed if he has 7 days of Bactrim at home, disregard this prescription of Bactrim. Mild leukocytosis which resolved. Patient does not have history of diabetes mellitus. 2. Chronic cigarette smoking since teenage: Patient advised quitting. On nicotine patch. Patient was treated with Lovenox for DVT prophylaxis. Discharge medication reconciliation done. Discharge follow-up instructions completed. Discharge process discussed with the patient and all questions were answered to patient's satisfaction. Total time spent, exact 35 minutes on discharge meds reconciliation, examination, coordination of care with nurses and ancillary staff, review of imaging and blood test and discussion with the patient on follow-up instructions Physical Exam Narrative General: Alert, Oriented x3, Cooperative HEENT: Atraumatic, PERRLA, EOMI, Normocephalic Oral: No Gingival or Mucosal Lesions/ Ulcerations Neck: Supple, No JVD, Negative Carotid Bruits Lungs: Air entry diminished in bilateral lung bases. No crepitation/rhonchi Cardiovascular: Regular rate, Regular Rhythm, Normal S1, Normal S2, No murmurs Abdomen: Bowel Sounds Present, Soft, Non Tender, Non-Distended : No renal angle tenderness. No suprapubic tenderness. Extremities: No edema, Capillary Refill Less than 3 Seconds Skin: Redness, tenderness or induration resolved in right lower leg. German wrap bandage on the right foot. Suture removal from laceration site. No purulence. Musculoskeletal: No Tenderness to Palpation of Joints or Extremities Neurological: Cranial nerves II-XII grossly intact, DTR 2+/4 and Symmetrical, Neuro grossly intact Psych/Mental Status: Normal Affect, Appropriate. Weight / BMI Weight Weight: 170 lb 10.205 oz Body Mass Index (BMI) 23.1 ABG / Lab / Microbiology Data Result Diagrams: 08/07/21 05:38 08/07/21 05:38 Laboratory: Laboratory Results - last 24 hr 08/07/21 00:30: Vancomycin Trough 10.9 08/07/21 05:38: WBC 10.3, RBC 4.87, Hgb 14.9, Hct 44.9, MCV 92.2, MCH 30.6, MCHC 33.2, RDW Std Deviation 43.7, RDW Coeff of Sandrine 12.8, Plt Count 196, MPV 10.4, Immature Gran % (Auto) 0.400, Neut % (Auto) 61.1, Lymph % (Auto) 21.1, [place] % (Auto) 12.1 H, Eos % (Auto) 4.8, Baso % (Auto) 0.5, Absolute Neuts (auto) 6.3, Absolute Lymphs (auto) 2.18, Nucleated RBC % 0 08/07/21 05:38: Sodium 137, Potassium 3.7, Chloride 106, Carbon Dioxide 26.0, Anion Gap 5, BUN 9, Creatinine 0.84, Estim Creat Clear Calc 130.54, Est GFR (MDRD) Af Amer 130, Est GFR (MDRD) Non-Af 108, BUN/Creatinine Ratio 10.7, Gluco se 97, Calcium 8.4 L Microbiology: Microbiology 08/06/21 08:16 Wound - Right Foot Wound Culture - Preliminary Gram positive organism 08/05/21 23:30 Wound - Right Foot Gram Stain - Final 08/05/21 23:30 Wound - Right Foot Wound Culture - Preliminary No growth-Final to follow D/C Instructions Discharge Diet: No restrictions Weight Bearing Status: No weight bearing Call your doctor if you observe: Fever of 101 or Higher, Coldness, Increased Pain, Numbness or Tingling, Change in Color, Inability to urinate, Inability to have a bowel movement, Shortness of breath, Dizziness, Fainting spells, Swelling in the ankles, Chest pain, Prolonged hiccupping, Increased palpitations (irregular heartbeat), Calf discomfort and Uncontrolled pain Meaningful Use Info Meaningful Use Diagnoses (Choose all that apply): None applicable Discharge Plan Admission Admit Date/Time: 08/05/21 22:36 Primary Reason for Your Visit: infected right foot foreign body Attending Provider: Jabari Arellano Consulting Providers: Malina Marshall Instructions Additional Instructions / Restrictions: -Maintain a nonweightbearing status to your right foot. Use surgical shoe for additional protection. Use crutches for assistance. It is okay to place weight on your heel if needed for balance. -Change her dressing daily with Betadine gauze. Cover further with Kerlix and the German wrap. -Elevate your right lower limb at rest. -Wash your foot with antibacterial soap and water with each dressing change and avoid soaking activities. -Keep your foot covered with the recommended dressing at all times and do not leave it open to the air. Discharge Orders/Prescriptions Prescriptions: New cephalexin 500 mg capsule 500 mg PO Q8H 7 Days Qty: 21 RF: 0 Lactobacillus acidophilus 1 billion cell tablet 1,000 mmu cells PO DAILY Qty: 7 RF: 0 Continued sulfamethoxazole-trimethoprim [Bactrim DS] 800-160 mg Tablet 1 tab PO BID Qty: 14 RF: 0 Referrals / Follow Up: VICKIE TINSLEY [Other] VICKIE TINSLEY [Other] - In 1 Week Malina Marshall DPM [STAFF PHYSICIAN] - In 1 Week (Call [facility] to schedule the appointment or call sooner if you have any questions or concerns. ) Disposition Disposition (needs filled in before D/C Order can be placed): Home, Self Care Charges/Coding Visit Charges Inpatient E&M: 41331 Disch Hosp
[2021-08-07 12:50] VITALS: BP 144/38; PULSE 85; RESP 20; TEMP 36.6; O2SAT 99
[2021-08-08 12:59] LABS: Pathologist Review Reviewed
== END 2021-08-07 13:05 | disposition home or self-care (01) | DRG 383 ==
LOC: ED 22:12 → MS3 08-06 00:11
PROVIDERS: Admitting Provider Internal Medicine; Emergency Provider Emergency Medicine; Visit Provider Internal Medicine
DX: L03.115 Cellulitis of right lower limb (principal); B95.7 Other staphylococcus as the cause of diseases classified elsewhere; S91.311D Laceration without foreign body, right foot, subsequent encounter; F17.210 Nicotine dependence, cigarettes, uncomplicated; R00.0 Tachycardia, unspecified; W25.XXXD Contact with sharp glass, subsequent encounter
CPT/HCPCS: 36415; 73630; 73701; 80048; 80053; 80202; 83735; 84100; 85025; 87070; 87075; 87077; 87186; 87205; 87640; 87641; 96365; 96366; 96367; 96368; 96372; 97802; 99221; 99251; 99284; J7030; J7040; J7050; Q9967; A4216; G0378; G0463; J0295